=== PATIENT | male | born 1975 | race Caucasian/White ===

== ENCOUNTER 2020-07-19 04:38 | Day surgery (SDC) | payer OTHER ==
[2020-07-16 15:16] VITALS: BMI 22.8
[2020-07-19] MEDS ORDERED: oxyCODONE HCL 5 MG TABLET PO PRN ×2 (15:21)
[2020-07-19] MEDS ORDERED: DEXAMETHASONE SOD PHOSPHATE 4 MG/1 ML VIAL ONE (16:44)
[2020-07-19] MEDS ORDERED: PROPOFOL 20 ML ONE (16:44)
[2020-07-19] MEDS ORDERED: MIDAZOLAM HCL 2 MG/2 ML SINGLE DOSE VIAL ONE (16:44)
--- NOTE | 2020-07-19 17:11 | OP ---
Operative Note - Note: Operative Date: 07/19/20 Pre-Operative Diagnosis: Left renal stone Operation: Left ESWL Findings: 6 mm lower pole Left renal stone Post-Operative Diagnosis: Same as Pre-op Anesthesia: Regional Estimated Blood Loss (mls): 0 Operative Report Dictated: Yes
[2020-07-19 18:28] VITALS: BP 109/72; PULSE 67; TEMP 97.5
--- NOTE | 2020-07-19 19:29 | OP ---
DATE OF OPERATION: 07/19/2020 PREOPERATIVE DIAGNOSIS: Left renal stone. POSTOPERATIVE DIAGNOSIS: Left renal stone. PROCEDURE: Left extracorporeal shockwave lithotripsy. ATTENDING: Blane Collins M.D. ANESTHESIA: Fractional. DESCRIPTION OF PROCEDURE: Patient was brought in the operating room, placed in a supine position on the operating room table. Ultrasonography and fluoroscopy were performed. A 6-mm left lower pole stone was identified. Anesthesia and preoperative antibiotics were then administered. Shockwave lithotripsy was then performed. 2500 impulses at 17 joules of power were administered to the stone with excellent fragmentation noted of the stone under realtime ultrasonography and fluoroscopy. No complications were noted. The patient tolerated the procedure very well. BLANE VALDEZ M.D. /[id number]
== END 2020-07-19 18:20 | disposition home or self-care (01) ==
LOC: JASU-SURG 04:38
PROVIDERS: ATTEND Urology
PROC: 0TF4XZZ Fragmentation in Left Kidney Pelvis, External Approach (ICD-10-PCS; principal; 2020-07-19 15:45)
DX: N20.0 Calculus of kidney (principal)